=== PATIENT | female | born 1990 | race Caucasian/White ===

== ENCOUNTER 2017-07-04 15:53 | Emergency (ER) | payer MEDICAID ==
[~2017-07-04] VITALS: Ht 157.5 cm; Wt 95.8 kg
[2017-07-04 15:56] VITALS: Ht 157.5 cm; Wt 95.8 kg
[2017-07-04 17:58] LABS: BASOPHIL % 0.5 % (0-2); PLATELET COUNT 260 x10^3mcL (130-400)
[2017-07-04 17:59] LABS: RED CELL DISTRIBUTION WIDTH 14.6 % (11.5-14.5)
[2017-07-04 18:08] LABS: CALCIUM 8.8 mg/dL (8.5-10.1); CARBON DIOXIDE 27.1 mmol/L (21-32); CHLORIDE SERUM 104 mmol/L (98-107); CREATININE SERUM 0.6 mg/dL (0.6-1.0); GFR1 > 60 mL/min; GLUCOSE SERUM 81 mg/dL (74-106); POTASSIUM SERUM 3.6 mmol/L (3.5-5.1); SODIUM SERUM 142 mmol/L (136-145)
[2017-07-04 18:17] LABS: ALBUMIN 3.6 g/dL (3.4-5.0); ALKALINE PHOSPHATASE 106 U/L (46-116); ALT/SGPT 22 U/L (14-59); AST/SGOT 26 U/L (15-37); BILIRUBIN TOTAL 0.46 mg/dL (0.20-1.00)
[2017-07-04 18:19] LABS: TOTAL PROTEIN, SERUM 8.6 g/dL (6.4-8.2)
[2017-07-04 18:44] VITALS: BP 118/71
== END 2017-07-04 18:44 | disposition home or self-care (01) ==
LOC: ED 15:53
PROVIDERS: Emergency Medicine
DX: R20.2 Paresthesia of skin (principal)
CPT/HCPCS: 36415

== ENCOUNTER 2017-10-05 05:01 | Emergency (ER) | payer MEDICAID ==
[2017-10-05 05:07] VITALS: Ht 157.5 cm
[2017-10-05 07:02] LABS: BASOPHIL % 0.8 % (0-2); PLATELET COUNT 247 x10^3mcL (130-400); RED CELL DISTRIBUTION WIDTH 13.9 % (11.5-14.5)
[2017-10-05 07:09] LABS: CALCIUM 8.5 mg/dL (8.5-10.1); CARBON DIOXIDE 24.9 mmol/L (21-32); CHLORIDE SERUM 105 mmol/L (98-107); CREATININE SERUM 0.7 mg/dL (0.6-1.0); GFR1 > 60 mL/min; GLUCOSE SERUM 93 mg/dL (74-106); POTASSIUM SERUM 3.9 mmol/L (3.5-5.1); SODIUM SERUM 137 mmol/L (136-145)
[2017-10-05 07:14] LABS: ALKALINE PHOSPHATASE 125 U/L (46-116); AST/SGOT 35 U/L (15-37); BILIRUBIN TOTAL 0.29 mg/dL (0.20-1.00); LIPASE 151 IU/L (73-393); TOTAL PROTEIN, SERUM 8.2 g/dL (6.4-8.2)
[2017-10-05 07:16] LABS: ALBUMIN 3.2 g/dL (3.4-5.0)
[2017-10-05 07:28] LABS: ALT/SGPT 10 U/L (14-59)
[2017-10-05 07:44] VITALS: BP 99/51
== END 2017-10-05 07:44 | disposition home or self-care (01) ==
LOC: ED 05:01
PROVIDERS: Emergency Medicine
DX: K80.20 Calculus of gallbladder without cholecystitis without obstruction (principal)
CPT/HCPCS: 36415; Q0092

== ENCOUNTER 2017-11-16 17:07 | Emergency (ER) | payer MEDICAID ==
[2017-11-16 17:18] VITALS: Ht 157.5 cm
[2017-11-16 18:55] VITALS: BP 132/74
== END 2017-11-16 18:55 | disposition home or self-care (01) ==
LOC: ED 17:07
DX: S40.862A Insect bite (nonvenomous) of left upper arm, initial encounter (principal); L03.114 Cellulitis of left upper limb; W57.XXXA Bitten or stung by nonvenomous insect and other nonvenomous arthropods, initial encounter; Y93.89 Activity, other specified; Y92.89 Other specified places as the place of occurrence of the external cause; Y99.8 Other external cause status
CPT/HCPCS: J7512

== ENCOUNTER 2018-12-11 13:02 | Emergency (ER) | payer MEDICAID ==
[~2018-12-11] VITALS: Ht 157.5 cm; Wt 100.7 kg
[2018-12-11 13:13] VITALS: Ht 157.5 cm; Wt 100.7 kg
[2018-12-11 14:46] LABS: BASOPHIL % 0.5 % (0-2); PLATELET COUNT 222 x10^3mcL (130-400)
[2018-12-11 14:52] LABS: RED CELL DISTRIBUTION WIDTH 16.8 % (11.5-14.5)
[2018-12-11 15:59] VITALS: BP 126/75
== END 2018-12-11 16:13 | disposition home or self-care (01) ==
LOC: ED 13:02
PROVIDERS: Emergency Medicine
DX: O03.9 Complete or unspecified spontaneous abortion without complication (principal); Z90.49 Acquired absence of other specified parts of digestive tract; Z3A.01 Less than 8 weeks gestation of pregnancy
CPT/HCPCS: 36415